=== PATIENT | female | born 1945 | race Caucasian/White ===

== ENCOUNTER 2017-01-28 12:55 | Observation (INO) | payer MEDICARE, BC ==
[~2017-01-28] VITALS: Ht 162.6 cm; Wt 57.8 kg
[~2017-01-28 12:55] MED LIST: AMBIEN5 MG PO; ATIVAN0.5 M1 PO; CARDIZEM SR120 MG PO; DOCUSATE SODIU1 EACH PO; MENTHOL COUGH PO; MILK OF MAGNESI30 ML PO; MIRALAX17 GM PO; OXYCODONE HCL5 MG PO; PROVENTIL HFA6.7 GM INH; SPIRIVA18 MCG INH; SYMBICORT 80-46.9 GM INH; SYNTHROID88 MCG PO; TAMBOCOR50 MG PO; TYLENOL325 MG PO; TYLENOL650 MG RECTAL; ULTRAM50 MG PO; XANAX0.25 MG PO; XARELTO20 MG PO; ZOFRAN ODT4 MG PO
[2017-01-28] MEDS ORDERED: XANAX0.25 MG PO (13:14)
[2017-01-28] MEDS ORDERED: TAMBOCOR50 MG PO (13:20)
[2017-01-28] MEDS ORDERED: LIPITOR80 MG PO (13:21)
[2017-01-28] MEDS ORDERED: XARELTO20 MG PO (13:21)
[2017-01-28] MEDS ORDERED: SYMBICORT 160-4.6 GM INH (13:22)
[2017-01-28] MEDS ORDERED: PROAIR HFA8.5 GM INH (13:22)
[2017-01-28] MEDS ORDERED: SPIRIVA18 MCG INH (13:22)
[2017-01-28] MEDS ORDERED: CEROVITE ADVANC1 TAB PO (13:23)
[2017-01-28] MEDS ORDERED: MIRALAX17 GM PO (13:23)
[2017-01-28] MEDS ORDERED: SYNTHROID88 MCG PO (13:24)
[2017-01-28] MEDS ORDERED: ESTRACE42.5 GM TOP (13:25)
[2017-01-28] MEDS ORDERED: VITAMIN D31000 UNI1 PO ×2 (13:27)
[2017-01-28] MEDS ORDERED: DILTIAZEM 24HR240 M1 PO (13:57)
[2017-01-30] MEDS ORDERED: ZITHROMAX500 MG PO (10:06)
[2017-01-30] MEDS ORDERED: TYLENOL325 MG PO (10:23)
[2017-01-30] MEDS ORDERED: CHERATUSSIN AC10 ML PO ×2 (10:24→10:35)
[2017-01-30] MEDS ORDERED: MUCINEX600 MG PO (10:44)
[2017-01-30] MEDS ORDERED: OMNICEF300 MG PO (10:47)
[2017-01-30] MEDS ORDERED: LOPERAMIDE1 MG/5 ML PO (11:01)
[2017-01-30] MEDS ORDERED: TESSALON PERLE100 M1 PO (11:28)
[2017-01-30] MEDS ORDERED: IMODIUM2 MG PO (11:31)
== END 2017-01-30 11:55 | disposition short-term general hospital (02) ==
LOC: IP 12:55 → OBS 12:55 → IP 12:55
PROVIDERS: ADMIT Family Medicine
DX: J18.9 Pneumonia, unspecified organism (principal); J44.9 Chronic obstructive pulmonary disease, unspecified; I25.10 Atherosclerotic heart disease of native coronary artery without angina pectoris; I48.91 Unspecified atrial fibrillation; E86.0 Dehydration; R50.9 Fever, unspecified; R53.1 Weakness; E03.9 Hypothyroidism, unspecified; M81.0 Age-related osteoporosis without current pathological fracture; Z87.891 Personal history of nicotine dependence; Z88.2 Allergy status to sulfonamides; Z88.8 Allergy status to other drugs, medicaments and biological substances; Z79.899 Other long term (current) drug therapy; Z90.49 Acquired absence of other specified parts of digestive tract; Z90.710 Acquired absence of both cervix and uterus
CPT/HCPCS: A9150; G0378; G0379; J0456; J0696